=== PATIENT | male | born 1985 | race Caucasian/White ===

== ENCOUNTER 2017-08-06 16:11 | Inpatient (IN) | payer OTHER ==
[~2017-08-06] VITALS: Wt 85.0 kg
[2017-08-06] MEDS ORDERED: ONDANSETRON 4 MG INJ IV STA (16:25)
[2017-08-06] MEDS ORDERED: morphine 4 MG/ML VIAL IV STA (16:25)
[2017-08-06] MEDS ORDERED: SOD CHLORIDE 0.9% 1,000 ML IV ONE (16:30)
[2017-08-06 16:55] LABS: BASOPHIL # 0.1 10^3/ul (0.0-0.1); BASOPHILS % 0.2 % (0.0-2.0); EOSINOPHILS # 0.1 10^3/ul (0.0-0.5); EOSINOPHILS % 0.2 % (0.0-7.0); HEMATOCRIT 46.9 % (42.0-52.0); HEMOGLOBIN 15.5 g/dl (14.0-18.0); LYMPHOCYTES # 3.7 10^3/ul (0.8-2.9); LYMPHOCYTES % 14.6 % (15.0-51.0); MEAN CORPUSCULAR HEMOGLOBIN 28.8 pg (29.0-33.0); MEAN PLATELET VOLUME 10.8 fl (7.4-10.4); MONOCYTE # 1.2 10^3/ul (0.3-0.9); MONOCYTES % 4.7 % (0.0-11.0); NEUTROPHIL # 19.8 10^3/ul (1.6-7.5); NEUTROPHILS % 79.4 % (39.0-77.0); PLATELET COUNT 464 10^3/UL (140-415); RED BLOOD COUNT 5.39 10^6/ul (4.70-6.10); RED CELL DISTRIBUTION WIDTH 13.2 % (11.5-14.5); WHITE BLOOD COUNT 24.9 10^3/ul (4.8-10.8)
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
--- NOTE | 2017-08-06 17:01 | RADRPT ---
PROCEDURE: Chest x-ray CLINICAL INDICATION: Shortness of breath TECHNIQUE: Chest single view COMPARISON: None FINDINGS: The heart is normal in size. The pulmonary vessels are normal in caliber. The lungs are clear. Th e costophrenic angles are sharp. The visualized bony thorax is unremarkable. IMPRESSION: No acute cardiopulmonary disease. Low lung volumes RPTAT: HH .Stan Holguin MD, Date Time Electronically viewed and signed by .Stan Holguin MD, on 08/06/2017 17:00 .W/
[2017-08-06 17:17] LABS: ALBUMIN 4.6 g/dl (3.3-4.9); BILIRUBIN,INDIRECT 0.2 mg/dl (0-1.1); BILIRUBIN,TOTAL 0.2 mg/dl (0.2-1.3); CALCIUM 9.4 mg/dl (8.4-10.2); CREATININE 0.93 mg/dl (0.61-1.24); POTASSIUM 3.3 mmol/L (3.5-5.1)
[2017-08-06] MEDS ORDERED: morphine 10 MG INJ IV ONE (17:30)
[2017-08-06] MEDS ORDERED: IOHEXOL 300MG/ML 150 ML BTL ONE (17:30)
[2017-08-06] MEDS ORDERED: SOD CHLORIDE 0.9% 100 ML ONE (17:30)
[2017-08-06] MEDS ORDERED: MESA800T2 PO (18:05)
[2017-08-06] MEDS ORDERED: FAMO20TA18 PO (18:06)
[2017-08-06] MEDS ORDERED: HYDROmorphONE 1 MG/ML SYG IV STA ×3 (18:30→21:59)
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
[2017-08-06] MEDS ORDERED: ACETAMINOPHEN 325 MG TAB PO PRN (20:00)
[2017-08-06] MEDS ORDERED: ONDANSETRON 4 MG INJ IV PRN (20:00)
[2017-08-06] MEDS ORDERED: OXYCODONE/ACETAMINOPHEN (10/325) TAB PO ONE (22:00)
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
[2017-08-06 22:45] VITALS: BP 148/81; PULSE 73; RESP 18
[2017-08-07] MEDS ORDERED: morphine 4 MG/ML VIAL IV PRN (00:30)
[2017-08-07] MEDS: ONDANSETRON 4 MG INJ IV PRN ×2 (00:40→07:46)
[2017-08-07 02:00] VITALS: BP 142/94; PULSE 64; RESP 18
[2017-08-07] MEDS: HYDROmorphONE 1 MG/ML SYG IV PRN ×2 (04:02→07:46)
[2017-08-07] MEDS: LEVOFLOXACIN 500MG/D5W (PMX) 100 ML IVPB SCH (05:22)
[2017-08-07 06:46] LABS: BASOPHILS % 0.2 % (0.0-2.0); HEMOGLOBIN 15.1 g/dl (14.0-18.0); LYMPHOCYTES # 2.2 10^3/ul (0.8-2.9); LYMPHOCYTES % 12.7 % (15.0-51.0); MEAN CORPUSCULAR HEMOGLOBIN 29.3 pg (29.0-33.0); MEAN CORPUSCULAR HGB CONC 33.6 g/dl (32.0-37.0); MEAN CORPUSCULAR VOLUME 87.2 fl (82.0-101.0); MEAN PLATELET VOLUME 11.2 fl (7.4-10.4); MONOCYTE # 1.4 10^3/ul (0.3-0.9); MONOCYTES % 7.8 % (0.0-11.0); NEUTROPHIL # 13.9 10^3/ul (1.6-7.5); NEUTROPHILS % 78.7 % (39.0-77.0); PLATELET COUNT 416 10^3/UL (140-415); RED BLOOD COUNT 5.16 10^6/ul (4.70-6.10); RED CELL DISTRIBUTION WIDTH 13.3 % (11.5-14.5); WHITE BLOOD COUNT 17.7 10^3/ul (4.8-10.8)
[2017-08-07 06:55] LABS: ALBUMIN 4.1 g/dl (3.3-4.9); ALBUMIN/GLOBULIN RATIO 1.24; BILIRUBIN,INDIRECT 0.6 mg/dl (0-1.1); BILIRUBIN,TOTAL 0.6 mg/dl (0.2-1.3); CALCIUM 9.1 mg/dl (8.4-10.2); CREATININE 0.77 mg/dl (0.61-1.24); PHOSPHORUS 4.1 mg/dl (2.5-4.9); POTASSIUM 3.7 mmol/L (3.5-5.1); TOTAL PROTEIN 7.4 g/dl (6.1-8.1)
[2017-08-07 07:51] VITALS: BP 157/95; RESP 20
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
[2017-08-07] MEDS ORDERED: FAMOTIDINE 20 MG TAB PO SCH (09:00)
[2017-08-07] MEDS: MESALAMINE (EC) 400 MG CAP PO SCH ×3 (09:47→22:20)
[2017-08-07] MEDS ORDERED: ONDANSETRON 4 MG INJ IV PRN (11:00)
[2017-08-07] MEDS: HYDROmorphONE 2 MG/ML SYG IV PRN ×3 (11:27→20:40)
[2017-08-07 13:50] VITALS: BP 162/83; RESP 18
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
[2017-08-07] MEDS: LIDOCAINE 5% PATCH TD SCH (14:59)
[2017-08-07] MEDS: D5W-0.45 NACL + KCL 40 MEQ 1,000 ML IV SCH (15:22)
[2017-08-07 19:26] VITALS: BP 159/96; RESP 20
[2017-08-07] MEDS: FAMOTIDINE 20 MG INJ IV SCH (20:34)
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
[2017-08-08] MEDS: HYDROmorphONE 2 MG/ML SYG IV PRN ×5 (00:37→19:07)
[2017-08-08 01:48] VITALS: BP 135/84; RESP 20
[2017-08-08] MEDS: LEVOFLOXACIN 500MG/D5W (PMX) 100 ML IVPB SCH (05:57)
[2017-08-08] MEDS: D5W-0.45 NACL + KCL 40 MEQ 1,000 ML IV SCH ×3 (05:57→22:00)
[2017-08-08 06:21] LABS: ABNORMAL IP MESSAGE 1; BASOPHIL # 0.1 10^3/ul (0.0-0.1); BASOPHILS % 0.3 % (0.0-2.0); EOSINOPHILS % 0.1 % (0.0-7.0); HEMATOCRIT 45.9 % (42.0-52.0); HEMOGLOBIN 14.9 g/dl (14.0-18.0); LYMPHOCYTES # 4.2 10^3/ul (0.8-2.9); LYMPHOCYTES % 21.2 % (15.0-51.0); MEAN CORPUSCULAR HEMOGLOBIN 28.3 pg (29.0-33.0); MEAN CORPUSCULAR HGB CONC 32.5 g/dl (32.0-37.0); MEAN CORPUSCULAR VOLUME 87.3 fl (82.0-101.0); MEAN PLATELET VOLUME 10.9 fl (7.4-10.4); MONOCYTE # 2.2 10^3/ul (0.3-0.9); MONOCYTES % 11.1 % (0.0-11.0); NEUTROPHIL # 13.1 10^3/ul (1.6-7.5); NEUTROPHILS % 66.7 % (39.0-77.0); PLATELET COUNT 384 10^3/UL (140-415); POSITIVE DIFF @See below; RED BLOOD COUNT 5.26 10^6/ul (4.70-6.10); RED CELL DISTRIBUTION WIDTH 13.2 % (11.5-14.5); WHITE BLOOD COUNT 19.6 10^3/ul (4.8-10.8)
[2017-08-08 06:50] LABS: ALBUMIN 4.1 g/dl (3.3-4.9); ALBUMIN/GLOBULIN RATIO 1.24; BILIRUBIN,INDIRECT 0.6 mg/dl (0-1.1); BILIRUBIN,TOTAL 0.6 mg/dl (0.2-1.3); CALCIUM 9.2 mg/dl (8.4-10.2); CREATININE 0.84 mg/dl (0.61-1.24); PHOSPHORUS 3.8 mg/dl (2.5-4.9); POTASSIUM 3.9 mmol/L (3.5-5.1); TOTAL PROTEIN 7.4 g/dl (6.1-8.1)
[2017-08-08 06:52] LABS: LACTATE DEHYDROGENASE 657 IU/L (313-618)
[2017-08-08 06:55] LABS: INR 1.16; PROTIME 14.9 Sec (12.2-14.2); PT RATIO 1.2
[2017-08-08] MEDS: KETOROLAC 30 MG INJ IV PRN ×3 (07:34→23:43)
[2017-08-08 07:51] VITALS: BP 138/97; RESP 18
[2017-08-08 08:11] LABS: THYROID STIMULATING HORMONE 2.52 MIU/L (0.465-4.680)
[2017-08-08] MEDS ORDERED: HYDROmorphONE 2 MG TAB PO PRN (09:00)
[2017-08-08] MEDS: FAMOTIDINE 20 MG INJ IV SCH ×2 (09:07→20:13)
[2017-08-08] MEDS: MESALAMINE (EC) 400 MG CAP PO SCH ×3 (09:07→20:13)
[2017-08-08] MEDS: LIDOCAINE 5% PATCH TD SCH (09:08)
[2017-08-08 14:09] VITALS: BP 137/88; RESP 18
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
[2017-08-08] MEDS ORDERED: LIDO700A45 TD (16:01)
[2017-08-08] MEDS ORDERED: HYDR2TAB36 PO (16:01)
[2017-08-08] MEDS ORDERED: ALBU18HF INH (16:11)
[2017-08-08] MEDS ORDERED: LEVO500T72 PO (16:11)
[2017-08-08] MEDS ORDERED: KETO60VI24 PO (16:11)
[2017-08-08 20:00] VITALS: BP 138/87; PULSE 88; RESP 18
[2017-08-09] MEDS: ALBUTEROL HFA 8 GM INHALER INH SCH ×3 (01:51→08:00)
[2017-08-09] MEDS: HYDROmorphONE 2 MG/ML SYG IV PRN ×2 (01:54→07:50)
[2017-08-09 02:00] VITALS: BP 143/83; PULSE 74; RESP 18
[2017-08-09] MEDS: LEVOFLOXACIN 500MG/D5W (PMX) 100 ML IVPB SCH (05:46)
[2017-08-09] MEDS: KETOROLAC 30 MG INJ IV PRN (05:58)
[2017-08-09 06:35] LABS: ABNORMAL IP MESSAGE 1; BASOPHILS % 0.3 % (0.0-2.0); EOSINOPHILS % 0.2 % (0.0-7.0); HEMATOCRIT 43.3 % (42.0-52.0); HEMOGLOBIN 14.3 g/dl (14.0-18.0); LYMPHOCYTES # 3.6 10^3/ul (0.8-2.9); MEAN CORPUSCULAR HEMOGLOBIN 28.9 pg (29.0-33.0); MEAN CORPUSCULAR VOLUME 87.7 fl (82.0-101.0); MEAN PLATELET VOLUME 10.7 fl (7.4-10.4); MONOCYTE # 1.8 10^3/ul (0.3-0.9); MONOCYTES % 12.7 % (0.0-11.0); NEUTROPHIL # 8.4 10^3/ul (1.6-7.5); NEUTROPHILS % 60.2 % (39.0-77.0); PLATELET COUNT 359 10^3/UL (140-415); POSITIVE DIFF @See below; RED BLOOD COUNT 4.94 10^6/ul (4.70-6.10); RED CELL DISTRIBUTION WIDTH 13.1 % (11.5-14.5); WHITE BLOOD COUNT 13.9 10^3/ul (4.8-10.8)
[2017-08-09] MEDS: D5W-0.45 NACL + KCL 40 MEQ 1,000 ML IV SCH (06:50)
[2017-08-09 07:17] LABS: CALCIUM 8.7 mg/dl (8.4-10.2); CREATININE 0.81 mg/dl (0.61-1.24); POTASSIUM 4.1 mmol/L (3.5-5.1)
[2017-08-09] MEDS: MESALAMINE (EC) 400 MG CAP PO SCH ×2 (07:49→12:22)
[2017-08-09] MEDS: LIDOCAINE 5% PATCH TD SCH (07:51)
[2017-08-09] MEDS: FAMOTIDINE 20 MG INJ IV SCH (07:51)
[2017-08-09 08:05] VITALS: BP 151/94; RESP 16
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
== END 2017-08-09 13:55 | disposition home or self-care (01) | DRG 184 ==
LOC: E/R 16:11 → MS2 19:50
PROVIDERS: ADMIT Internal Medicine; ATTEND Internal Medicine
DX: S22.41XA Multiple fractures of ribs, right side, initial encounter for closed fracture (principal); F05 Delirium due to known physiological condition; K50.90 Crohn's disease, unspecified, without complications; S06.0X0A Concussion without loss of consciousness, initial encounter; J98.11 Atelectasis; R41.0 Disorientation, unspecified; S42.031A Displaced fracture of lateral end of right clavicle, initial encounter for closed fracture; S22.32XA Fracture of one rib, left side, initial encounter for closed fracture; V29.9XXA Motorcycle rider (driver) (passenger) injured in unspecified traffic accident, initial encounter; Y92.488 Other paved roadways as the place of occurrence of the external cause; Y93.89 Activity, other specified; Y99.8 Other external cause status; T40.695A Adverse effect of other narcotics, initial encounter; Y92.230 Patient room in hospital as the place of occurrence of the external cause; R11.2 Nausea with vomiting, unspecified
CPT/HCPCS: 71010; 71260; 74000; 74177; 80048; 80053; 80076; 83615; 83690; 83735; 84100; 84443; 85025; 85610; 96374; 96375; 96376; J1170; J1885; J1956; J2270; J2405; J3480; J7030; Q9967